=== PATIENT | female | born 1935 | race Caucasian/White ===

== ENCOUNTER 2016-05-06 12:14 | Emergency (ER) | payer MEDICARE, OTHER ==
[2016-05-06] MEDS ORDERED: Pantoprazole IV* 40 MG IV ONE (12:35)
[2016-05-06] MEDS ORDERED: NS 0.9% 1000 ML* 1,000 ML IV ONE (12:37)
[2016-05-06 13:13] LABS: Hematocrit 15 % (35-47); Mean Corpuscular HGB Conc 33 g/dl (31-36); Mean Corpuscular Hemoglobin 26 pg (27-31); Mean Corpuscular Volume 80 fL (80-97); Mean Platelet Volume 8 um3 (7.4-10.4); Red Blood Count 1.87 10^6/ul (4.0-5.4); Red Cell Distribution Width 17 % (10.5-15); White Blood Count 10.9 10^3/ul (3.5-10.8)
[2016-05-06 13:14] LABS: Comments Flag Yes
[2016-05-06 13:16] LABS: Hemoglobin 4.9 g/dl (12.0-16.0)
[2016-05-06 13:19] LABS: ALT 7 U/L (7-52); AST 12 U/L (13-39); Albumin 3.1 g/dL (3.2-5.2); Alkaline Phosphatase 58 U/L (34-104); Amylase 15 U/L (29-103); Anion Gap 3 mmol/L (2-11); BUN/Creatinine Ratio 29.3 (8-20); Blood Urea Nitrogen 89 mg/dL (6-24); C Reactive Protein 21.36 mg/L (< 5.00); CO2 Carbon Dioxide 23 mmol/L (22-32); Calcium 8.6 mg/dL (8.6-10.3); Chloride 104 mmol/L (101-111); EGFR African American 18.9 (>60); EGFR Non-African American 14.7 (>60); Globulin 2.4 g/dL (2-4); Glucose 124 mg/dL (70-100); Lipase < 10 U/L (11.0-82.0); Potassium 4.2 mmol/L (3.5-5.0); Sodium 130 mmol/L (133-145); Total Protein 5.5 g/dL (6.4-8.9)
--- NOTE | 2016-05-06 16:00 | ED ---
Carmen Argueta Rebecca, scribed for Temo Carrasco MD on 05/06/16 at 1232 . GI/ HPI - HPI Summary HPI Summary: Pt is an 81 y/o F BIBA who comes to ED p/w hematemesis, lethargy and hypotension. Hematemesis is acute on chronic, worsening gradually 2 days ago and has been intermittent since onset. [facility], [facility] ([facility]-term) tested a positive Hemoccult 2 days ago. Denies any pain, including abd pain. Pt is not on any blood thinners. PMHx GI bleed. - History of Current Complaint Time Seen by Provider: 05/06/16 12:25 Stated Complaint: GENERAL ILLNESS Hx Obtained From: Patient Onset/Duration: Started Days Ago - 2 Timing: Intermittent Pain Intensity: 0 Associated Signs and Symptoms: Positive: Hematemesis - 2 days, Blood w/Stool - Pos Hemoccult at long-term (2 days ago), Other: - Hypotension - Allergy/Home Medications Allergies/Adverse Reactions: Allergies Allergy/AdvReac Type Severity Reaction Status Date / Time Hydromorphone [From Dilaudid] Allergy Unknown unk Verified 05/06/16 13:46 Home Medications: Home Medications Acetaminophen [Acetaminophen Extra Stren] 1,000 mg PO Q8HR PRN 05/06/16 [ History Confirmed 05/06/16] Albuterol/Ipratropium NEB.MILVIA* [Duoneb NEB.MILVIA*] 1 neb INH TID 05/06/16 [ History Confirmed 05/06/16] Ferrous Sulfate TAB* 325 mg PO DAILY 05/06/16 [History Confirmed 05/06/16] Insulin Aspart PEN(NF) [Novolog Flexpen(NF)] 4 unit SUBCUT AC 05/06/16 [History Confirmed 05/06/16] Insulin GLARGINE(*) [Lantus(*)] 38 units SUBCUT BEDTIME 05/06/16 [History Confirmed 05/06/16] Lisinopril TAB* [Prinivil TAB*] 10 mg PO DAILY 05/06/16 [History Confirmed 05/06] Montelukast Sodium TAB* [Singulair TAB*] 10 mg PO DAILY 05/06/16 [History Confirmed 05/06/16] Multiple Vitamins W/ Minerals [Eye Vitamins & Minerals] 1 tab PO DAILY 05/06/16 [History Confirmed 05/06/16] Omeprazole CAP* [Prilosec CAP* 20 MG] 40 mg PO BID 05/06/16 [History Confirmed 05/06/16] Omeprazole CAP* [Prilosec CAP* 20 MG] 40 mg PO DAILY PRN 05/06/16 [History Confirmed 05/06/16] Ondansetron TAB* [Zofran Tab*] 4 mg PO Q6H PRN 05/06/16 [History Confirmed 05/06] Sennosides-Docusate Sodium [Senna-S 8.6-50 mg] 2 tab PO BEDTIME PRN 05/06/16 [ History Confirmed 05/06/16] amLODIPine TAB* [Norvasc TAB*] 10 mg PO DAILY 05/06/16 [History Confirmed ] PMH/Surg Hx/FS Hx/Imm Hx Endocrine/Hematology History: Reports: Hx Blood Transfusions, Hx Diabetes, Hx Anemia, Hx Unexplained Bleeding Cardiovascular History: Reports: Hx Congestive Heart Failure, Hx Hypertension, Other Cardiovascular Problems/Disorders - a-fib Respiratory History: Denies: Hx Asthma, Hx Chronic Bronchitis, Hx Chronic Obstructive Pulmonary Disease (COPD), Hx Cystic Fibrosis, Hx Lung Cancer, Hx Pleural Effusion, Hx Pneumonia, Hx Pulmonary Edema, Hx Pulmonary Embolism, Hx Seasonal Allergies, Hx Sleep Apnea, Other Respiratory Problems/Disorders GI History: Reports: Hx Diverticulosis, Hx Gastroesophageal Reflux Disease, Hx Gastrointestinal Bleed, Other GI Disorders Denies: Hx Cirrhosis, Hx Crohn's Disease, Hx Gall Bladder Disease, Hx Hiatal Hernia, Hx Irritable Bowel, Hx Jaundice, Hx Obstructive Bowel, Hx Ileostomy, Hx Pyloric Stenosis, Hx Ulcer History: Reports: Hx Acute Renal Failure, Hx Chronic Renal Failure, Hx Kidney Stones, Other Problems/Disorders - Hydronephrosis with L nephrolithiasis Denies: Hx Benign Prostatic Hyperplasia, Hx Dialysis, Hx Kidney Infection Musculoskeletal History: Reports: Hx Back Problems, Hx Orthopedic Injury - fracture of pubic rami & sacrum, Other Musculoskeletal History - DJD Neurological History: Denies: Hx Dementia, Hx Developmental Delay, Hx Headaches, Hx Migraine, Hx Nerve Disease, Hx Seizures, Hx Spinal Cord Injury, Hx Transient Ischemic Attacks (TIA), Other Neuro Impairments/Disorders Psychiatric History: Reports: Hx Depression Infectious Disease History: Denies: Hx Clostridium Difficile, Hx Hepatitis, Hx Human Immunodeficiency Virus (HIV), Hx of Known/Suspected MRSA, Hx Shingles, Hx Tuberculosis, Hx Known/ Suspected VRE, Hx Known/Suspected VRSA, History Other Infectious Disease - Family History Known Family History: Positive: Cardiac Disease, Hypertension, Diabetes - Social History Lives: [facility] Alcohol Use: None Substance Use Type: Reports: None Hx Tobacco Use: No Smoking Status (MU): Never Smoked Tobacco Review of Systems Positive: Other - Hypotension Positive: Vomiting - Hematemesis. Negative: Abdominal Pain Positive: other - Positive Hemoccult (at long-term 2 days ago) Negative: Arthralgia All Other Systems Reviewed And Are Negative: Yes Physical Exam - Summary Physical Exam Summary: VITAL SIGNS: Reviewed. GENERAL: Patient is an obese female who is lying comfortable in the stretcher. Patient is not in any acute respiratory distress. HEAD AND FACE: Normocephalic and atraumatic. EYES: PERRLA, EOMI x 2, No injected conjunctiva. EARS: Hearing grossly intact. Ear canals and tympanic membranes are WNL. MOUTH: Oropharynx within normal limits. NECK: Supple, trachea is midline, no adenopathy, no JVD. CHEST: Symmetric, no tenderness at palpation LUNGS: Clear to auscultation bilaterally. No wheezing or crackles. CVS: RRR,, S1 and S2 present, no murmurs or gallops appreciated. ABDOMEN: Soft, obese, No signs of distention. Positive bowel sounds. No rebound no guarding, and no masses palpated. No abdominal bruit or pulsations. Positive melena EXTREMITIES: FROM in all major joints, no edema, no cyanosis or clubbing. NEURO: Alert and oriented. No acute neurological deficits. Speech is normal. SKIN: Dry and warm Vital Signs On Initial Exam: Initial Vitals Pulse BP Pulse Ox 88 80/65 100 05/06/16 12:21 05/06/16 12:21 05/06/16 12:21 Diagnostics - Vital Signs Vital Signs Temp Pulse Resp BP Pulse Ox 05/06/16 12:46 99.4 F 77 16 96/71 100 05/06/16 12:45 87 22 96/71 100 05/06/16 12:30 88 21 103/41 100 05/06/16 12:21 88 80/65 100 - Laboratory Result Diagrams: 05/06/16 12:30 05/06/16 12:30 Lab Statement: Any lab studies that have been ordered have been reviewed, and results considered in the medical decision making process. - EKG 1221 Cardiac Rate: NL - 83 bpm EKG Rhythm: Sinus Rhythm - normal ST Segment: Non-Specific - ST depression in V1 and aVL, T wave inversions in V1- V3 EKG Interpretation: RBBB GIGU Course/Dx - Course Assessment/Plan: 81 y/o F who presents to ED as a transfer from long-term with a CC of GI bleed and low H&H. Pt has a long Hx of the same complaints. Test results shows an H&H of 4.9/15 and BUN/creatinine of 89/3.04. Physical exam reveals melena and it is guaiac positive. Although pt is demented, she says that she will take the transfusion. I spoke with Dr. Rolon and she agreed to admit pt to hospitalist services. Dr. Rolon spoke with the pt's daughter and she is reluctant at this time to okay transfusion and getting pt admitted to hospital. The daughter does not understand that if pt will not get transfusion, pt will . Pt understands the prognosis if not treated. The pt's BP improved after IV fluids but she is still critical. Dr. Rolon spoke with pt's daughter and son who came to ED and they both agreed that pt should be returned back to long-term for only comfort care. They understand the risk of the pt going back to the long-term without any type of treatments. They understand that the pt finally will . They verbalized understanding. They also signed another DNR/DNI form and the MOLST form. Therefore, pt will be d/c back to the long-term. - Diagnoses Differential Diagnoses - Female: Colitis, Diverticulitis, Gastritis, Other - GI bleed Provider Diagnoses: GI bleed - Physician Notifications Discussed Care Of Patient With: Dr. Rolon, hospitalist, who agrees to admit pt. Time Discussed With Above Provider: 13:04 Discharge - Discharge Plan Condition: Improved Disposition: HOME Patient Education Materials: Gastrointestinal Bleeding (ED) [facility] - [facility] Days Additional Instructions: [facility] up with [facility] within the next 3 days. The documentation as recorded by the scribe, DiFabio,Alpa accurately reflects the service I personally performed and the decisions made by me, Temo Carrasco MD.
[2016-05-06 17:44] VITALS: BP 109/52
--- NOTE | 2016-05-06 20:14 | CONS ---
CONSULTATION REPORT: DATE OF CONSULT: 05/06/16 PRIMARY CARE PHYSICIAN: Dr. Ann, [facility]. REASON FOR CONSULTATION: Possibility of admission of the patient with GI bleed and anemia. HISTORY OF PRESENT ILLNESS: Padmini Moya is an 81-year-old female with history of chronic GI bleed with recurrent hospitalizations for it and evaluations for it who in November 2015 after another treatment and evaluation for that, decided not to be admitted back to the hospital and do not resuscitate. Her MOLST continues to be in power until this morning when the patient became more confused and the patient's hemoglobin was noted to be at the level of 4. At that point, Dr. Ann spoke with the patient who agreed to be sent to the hospital. The patient was sent to the hospital. The patient's systolic blood pressures were in the 90s. I spoke with the patient's daughter Unique who is the patient's healthcare proxy. Apparently, Unique was not aware that the patient was sent to the hospital despite the patient's original MOLST saying "do not hospitalize." The patient herself is too confused to make a decision. I had a long discussion with the patient's healthcare proxy, daughter Unique as well as the patient's son Ramo. The patient's family was to decide if the patient will be admitted to the hospital and her previous MOLST is rescinded or if the family honors her wishes and continue her treatment at [facility]. A hospitalist consult was requested in regards to possibility of admission. PAST MEDICAL HISTORY: 1. History of recurrent GI bleed as mentioned above. 2. History of rectal bleeding. 3. Diabetes. 4. History of sacral fractures. 5. Chronic kidney disease. 6. Hypertension. 7. Depression. 8. Bilateral total knee replacement. 9. Right femur replacement. MEDICATIONS: Include: 1. Zofran 4 mg every 6 hours p.r.n. 2. Acetaminophen 1000 mg every 8 hours p.r.n. 3. Omeprazole 40 mg daily p.r.n. 4. Insulin NovoLog 4 units subcutaneously a.c. 5. Albuterol/Atrovent nebulizers 1 nebulizer 3 times a day. 6. Omeprazole 40 mg b.i.d. 7. Senna 2 tablets at bedtime p.r.n. 8. Singulair 10 mg daily. 9. Multivitamin 1 tablet daily. 10. Amlodipine 10 mg daily. 11. Lisinopril 10 mg daily. 12. Insulin Lantus 38 units at bedtime. 13. Prozac 40 mg daily. 14. Ferrous sulfate 325 mg daily. 15. Diazepam 2 mg at bedtime. ALLERGIES: Include DILAUDID. FAMILY HISTORY: Reviewed and noncontributory. SOCIAL HISTORY: The patient denies any tobacco, alcohol, or drug use. She is a [facility] resident. She has history of dementia. The patient's surrogate decision making person is Unique Schmitt, the patient's daughter. REVIEW OF SYSTEMS: The patient is too confused to be able to give me any valid information apart from that her "bottom hurts." She answers "yes" to questions if she were vomiting but she is not aware of how long she has been vomiting and how the vomitus looked. She cannot give me any other information. From review of the [place] [facility] notes, it appears that the patient had intermittent hemoptysis for several days. All the remaining 14 systems were reviewed with the patient but were really limited and basically unobtainable. PHYSICAL EXAM: Vitals: Blood pressure of 96/71, heart rate of 77 and regular, respiratory rate 16, oxygen saturation 100% on 2 L of oxygen, temperature of 99.4. General: The patient is a pleasant 81-year-old female who is awake, disoriented but conversational. She is unable to tell me if she is in the hospital. She keeps on repeating "I don't want to be in hospital." She recognizes her daughter Unique present in the room. HEENT: Head: Atraumatic, normocephalic. Eyes: Pupils are equal reactive to light and accommodation. Oropharynx with specks of dried up blood on her lips. Otherwise clear. Neck: Supple. No JVD. No bruits bilaterally. Cardiovascular: Regular rate and rhythm. No murmur. Respiratory: Clear to auscultation bilaterally. Abdomen: Soft. Minimally tender in the epigastric area with no rebound, no guarding. Bowel sounds are present in all four quadrants. Extremities: There is trace bilateral nonpitting pedal edema. Pulses are +2 bilaterally. No clubbing or cyanosis. Neuro Evaluation: Speech is clear. Cranial nerves II through XII grossly intact. Motor strength is 5/5 bilaterally. Skin: Pallor noted. DIAGNOSTIC STUDIES/LAB DATA: Laboratory data showed white blood cell count of 10.9, hemoglobin of 4.9, hematocrit of 15, and platelets of 353. Sodium 130, potassium 4.2, chloride 104, carbon dioxide 23, BUN 89, creatinine 3.04. Liver function tests were unremarkable. C-reactive protein was 21. Albumin low at 3.1. PTT of 24. ASSESSMENT AND PLAN: This 81-year-old female with history of chronic and recurrent GI bleed with a negative workup in the past who wished not to be rehospitalized, at this time was sent to the hospital for another bout of what appears to be upper GI bleed and severe anemia. The patient is mildly hypotensive. I spent approximately 60 minutes talking with the patient's family present in the room, her daughter Unique and her son Ramo. Family was very upset in regards to that the patient was sent to the hospital without the notification of the healthcare proxy. They stated that "it happened every time the patient came into the hospital." Apparently in the past, the patient also was noted to be hospitalized but she was sent to the hospital nevertheless. Unique also stated that after each of these hospitalizations, once the patient recovered and was coherent enough to voice her own mind, she would ask not to be brought back to the hospital. Unique stated that it unfortunately is happening again. At this point, Unique is ready to make the decision for the patient not to be rehospitalized. She wishes for the patient to be comfortable and not to be kept in the hospital. She signed another MOLST ensuring that the patient is not sent to the hospital unless other severe symptoms cannot be controlled. Unique wishes for the patient to be comfortable. She agrees with hospice referral while the patient comes back to the [place] [facility]. I discussed the above mentioned findings and recommendations with Dr. Carrasco from the emergency department who is going to discharge the patient back to the [place] [facility] with recommendations to contact hospice at the discharge. TIME SPENT: Overall, approximately 90 minutes was spent in the care of this patient and in family discussion [id number] with the patient and the patient' s family. CC: Dr. Ann* [id number]/CPS #: [id number] MTDD
== END 2016-05-06 17:43 | disposition home or self-care (01) ==
LOC: ED 12:14
DX: K92.2 Gastrointestinal hemorrhage, unspecified (principal); K92.0 Hematemesis; R53.83 Other fatigue; I95.9 Hypotension, unspecified
CPT/HCPCS: 36415; 80053; 82150; 83605; 83690; 85025; 85730; 86140; 86850; 86900; 86901; 86922; 93005; 96365; 99283